=== PATIENT | male | born 1980 | race Caucasian/White ===

== ENCOUNTER 2019-03-28 09:12 | Emergency (ER) | payer MEDICARE ==
[2019-03-28 09:21] VITALS: BP 131/84
[2019-03-28] MEDS ORDERED: ATOR40TA24 PO (09:28)
[2019-03-28] MEDS ORDERED: GABA-549 PO (09:28)
[2019-03-28] MEDS ORDERED: METF-452 PO (09:28)
[2019-03-28] MEDS ORDERED: LISI20TA29 PO (09:28)
--- NOTE | 2019-03-28 09:33 | ER Report ---
History and Physical Time Seen By MD: 09:26 Hx. of Stated Complaint: patient reports falling two days ago hitting the right shoulder. Was seen in [facility] for this and was told it was not broken but says "I think it needs to be in a sling" HPI/ROS CHIEF COMPLAINT: Left shoulder pain HISTORY OF PRESENT ILLNESS: 39-year-old male had a mechanical fall several days ago onto his left shoulder landing on the top part of the acromioclavicular joint seen an outpatient ER in [place] was x-rayed and told no fractures was sent home told that his shoulder sprain his examination however is consistent with more likely an before meals separation he's had pain in his shoulders not been supported he is declining x-rays at this time patient said no and had no head or neck trauma no loss of consciousness no additional complaints noted. REVIEW OF SYSTEMS: Respiratory: No cough, no dyspnea. Cardiovascular: No chest pain, no palpitations. Gastrointestinal: No vomiting, no abdominal pain. Musculoskeletal: Left shoulder pain Remainder of the 14 system rev: Yes Reviewed Nurses Notes: Yes Old Medical Records Reviewed: Yes Constitutional Vital Sign - Last 24 Hours 03/28/19 09:21 Temp 97.8 Pulse 77 Resp 16 B/P (MAP) 131/84 Pulse Ox 94 O2 Delivery Room Air Physical Exam General appearance: Alert no distress. Respiratory: Chest is non tender, lungs are clear to auscultation. Cardiac: Regular rate and rhythm [ ] Shoulder examination patient unable to AB duct the left shoulder past 45 pain with external and internal rotation no obvious dislocation no obvious clavicular tenderness consistent with a before meals separation neurovascularly intact DIFFERENTIAL DIAGNOSIS: After history and physical exam differential diagnosis was considered for before meals separation Medical Decision Making ED Course/Re-evaluation ED Course ED course 39-year-old male comes emergency Department today with a complaint of left shoulder pain negative x-rays performed several days ago consistent with a E's separation sling replace orthopedic referral Decision to Disposition Date: Mar 28, 2019 Decision to Disposition Time: 09:32 Depart Departure Latest Vital Signs Vital Signs Date Time Temp Pulse Resp B/P (MAP) Pulse Ox O2 Delivery O2 Flow Rate FiO2 03/28/19 09:21 97.8 77 16 131/84 94 Room Air Impression: Primary Impression: Shoulder separation Condition: Improved Disposition: HOME OR SELF-CARE Referrals: RODO ARAUZ MD 5 Days Patient Instructions: Shoulder Separation Exercises (GEN) SARKIS IRBY MD Mar 28, 2019 09:34
== END 2019-03-28 09:53 | disposition home or self-care (01) ==
LOC: ER 09:18
DX: S43.005A Unspecified dislocation of left shoulder joint, initial encounter (principal)
CPT/HCPCS: 99282; A4565